=== PATIENT | female | born 1990 | race Caucasian/White ===

== ENCOUNTER 2018-04-04 08:37 | Inpatient (IN) ==
[2018-04-04] MEDS ORDERED: Metoclopramide 10 MG/2 ML VIAL IVP PRN (08:42)
[2018-04-04] MEDS ORDERED: Famotidine 20 MG/2 ML VIAL IVP PRN (08:42)
[2018-04-04] MEDS ORDERED: miSOPROStol 25 MCG TABLET PO PRN (08:42)
[2018-04-04] MEDS ORDERED: Ondansetron 4 MG/2 ML VIAL IVP PRN ×2 (08:42→12:20)
[2018-04-04] MEDS ORDERED: Naloxone 0.4 MG/ML INJ IVP PRN ×2 (08:42→12:20)
[2018-04-04] MEDS ORDERED: Oxytocin 20 units/ LR 1000 mL 20 UNIT/1,000 ML BAG IVC SCH ×2 (08:45→18:47)
[2018-04-04 09:28] LABS: Basophils % 0.2 %; Eosinophils # 0.1 K/mcL (0.0-0.6); Eosinophils % 0.6 %; Hemoglobin 12.1 g/dL (11.5-15.4); Immature Granulocytes % 0.2 % (0-4); Lymphocytes # 1.8 K/mcL (0.6-4.6); Lymphocytes % 22.8 %; Mean Corpuscular HGB Conc 32.7 g/dL (31.6-35.5); Mean Corpuscular Hemoglobin 26.8 pg (28.0-33.3); Mean Platelet Volume 9.3 fL (9.4-12.4); Monocytes # 0.6 K/mcL (0.0-1.3); Monocytes % 7.1 %; Neutrophils # 5.5 K/mcL (1.6-8.9); Platelet Count 267 K/mcL (140-400); Red Blood Count 4.51 M/mcL (3.82-4.97); Red Cell Distribution Width 13.9 % (11.5-14.5); Segmented Neutrophils % 69.1 %
[2018-04-04 09:47] LABS: Amphetamine Screen,Urine Negative ng/mL (Cutoff=1000); Barbiturate Screen,Urine Negative ng/mL (Cutoff=200); Benzodiazepines Screen,Urine Negative ng/mL (Cutoff=200); Cannabinoid Screen,Urine Negative ng/mL (Cutoff = 50); Cocaine Screen,Urine Negative ng/mL (Cutoff= 300); Opiate Screen,Urine Negative ng/mL (Cutoff=300); Phencyclidine Screen,Urine Negative ng/mL (Cutoff=25)
--- NOTE | 2018-04-04 10:04 | OB/GYN History & Physical ---
Date of Encounter: 04/04/18 Time of Encounter: 10:01 Assessment and Plan (1) 39 weeks gestation of Current visit: Yes Status: Acute admitted for IOL cytotec 50mcg PO daily (2) Rh negative status during in third trimester Current visit: Yes Status: Acute Rhogam evaluation following delivery History of Present Illness Chief complaint: Scheduled IOL at 39w5d HPI: Ms. Piper is a 27 year old female @ 39w5d presents to labor and delivery for scheduled IOL. Maldonado score of 10. Patient reports +FM, denies contractions , LOF or VB. Patient denies complications with current . Blood type: A- Rubella: Immune Hep B: Non-reactive GBS: Negative Past Med Surg Social Fam HX - Past Medical History Source: patient Medical history: no medical history Psychiatric history: no psych history - Past Surgical History Surgical History: other Additional surgical history: Ankle surgery - Social History Smoking Status: Never smoker Smokeless Tobacco Status: No Alcohol use: none Drug use: none - Family History Mother Living Status: Still Living Hx Family Cardiac Disorders: No Hx Family Respiratory Disorders: No Hx Family Cancer: No Hx Family GI Disorders: No Hx Family Endocrine Disorder: No Hx Family Musculoskeletal Disorders: No Hx Family Neuromuscular Disorders: No Hx Family Neurologic Disorders: No Hx Family HEENT Disorders: No Hx Family Autoimmune Disorders: No Hx Family Reproductive Disorders: No Hx Family Psychosocial Disorders: No Hx Family Medical Disorders: No Obstetrical History - Pregnancies : 2 Para: 1 Term: 1 : 0 Ab's: 0 Livin Medications and Allergies Pnv95/Iron Fum/Folic Acid [ Caplet] 1 tab PO DAILY 02/25/16 [History] Cyclobenzaprine [Flexeril] 5 mg PO BID PRN #10 tablet 02/27/16 [Rx] Docusate [Colace] 100 mg PO BID #60 capsule 02/27/16 [Rx] Ibuprofen [Motrin] 600 mg PO QID #60 tablet 02/27/16 [Rx] 3 Allergy/AdvReac Type Severity Reaction Status Date / Time No Known Allergies Allergy Unverified 10/12/15 10:46 Review of System OB - Constitutional Constitutional ROS IM: no chills, no fever(s), no headache(s) - Cardiovascular Cardiovascular: no chest pain, no edema, no lightheadedness, no palpitations - Respiratory Respiratory: no cough - Gastrointestinal Gastrointestinal: no abdominal pain, no constipation, no diarrhea, no heartburn , no nausea, no vomiting - Genitourinary Genitourinary: no abnormal vaginal bleeding, no dysuria, no flank pain, no urinary frequency, no urinary urgency, no vaginal discharge, no vaginal odor, no vaginal pruritis Exam - Constitutional Constitutional: well developed, well nourished, no acute distress, average body habitus - HEENT HEENT: Normocephaly, Mucus Membranes Moist - Neck Neck exam: full ROM, supple - Lungs Respiratory exam: CTAB - Cardiovascular Cardiovascular exam: RRR, +S1 - Abdomen Abdomen: Present: bowel sounds normal, gravid, non tender - Extremities Extremities exam: full ROM, normal inspection Deep Tendon Reflex Grade: 2+ Normal - Uterus Uterus exam: Present: normal size, normal contour - Anus/Rectum Anus/Rectum: Present: normal perianal skin - Comments Comments: FHR 130 bpm moderate amount of variability +15x15 accels no decels noted. Contractions are irregular. Cat. 1 tracing Results Result Diagrams: 04/04/18 08:47 Abnormal lab results MCV 82.0 fL (83.0-100.0) L 04/04/18 08:47 MCH 26.8 pg (28.0-33.3) L 04/04/18 08:47 MPV 9.3 fL (9.4-12.4) L 04/04/18 08:47 All other labs normal. - VTE Reasons for not Prescribing Prophylaxis: Treatment not Indicated - Low risk for VTE
[2018-04-04] MEDS ORDERED: *HR* FentaNYL (PF) 100 MCG/2 ML VIAL EP ONE (12:20)
[2018-04-04] MEDS ORDERED: EPHEDrine 50 MG/ML VIAL IVP PRN (12:20)
[2018-04-04] MEDS ORDERED: Bupivacaine-MPF 0.25% 10 ML VIAL EP ONE (12:20)
--- NOTE | 2018-04-04 12:24 | Anesthesia Procedures ---
Date of Encounter: 04/04/18 Time of Encounter: 14:00 Procedures: Anesthesia - Epidural/Spinal Patient ID/Chart reviewed: Yes Patient examined: Yes OB Eval: Gestational age: 39.5 OB Eval: : 2 OB Eval: Hx Para: 1 OB Eval: Dilated at (cm): 4 OB Eval: Contractions: Non-stressed pattern Consent Obtained: Yes Supplemental Oxygen: None/Room Air Site Prep: Aseptic Technique, Sterile prep and drape, Povidone-Iodine 1% Patient position: upright Local Anesthetic: Lidocaine 1% Amount of Local Anesthetic used: 3 Touhy Needle Gauge: 18 Touhy Needle Depth (cm): 5 Catheter Depth at Skin (cm): 15 Test Dose (1.5% Lido + Epi): Volume given (mls): 3 Test Dose Result: Negative Loading Dose: 0.25% Marcaine (mls): 10 Loading Dose: Fentanyl (mcg): 100 Loading Dose Administered: Thru Catheter Infusion Med: 0.125% Bupivacaine w/ 2 mcg/ml Fentanyl Infusion Rate (mls/hr): [address]: Tegaderm, Tape Interspace Used: L3-L4 Loss of Resistance (TAMMY): Yes Blood: No CSF: No Paresthesia: No Procedure: ION placed 1st pass without any immediate noted complications. VSS and FHT stable Vitals + FHT's: 1400 BP 124/77 P 95 R 20 1418 BP 107/70 P 82 R 16 FHT 120s
--- NOTE | 2018-04-04 12:27 | Anesthesia Evaluation PreOp ---
Date of Encounter: 04/04/18 Time of Encounter: 12:21 - Past History Planned Operation: ION Cardiac History: Denies any Significant Hx Pulmonary History: Denies Any Significant HX LITIGATION COUNSEL History: Denies Any Significant HX Other Medical History: GERD (controlled with TUMS) Anesthesia History: No Prior Anesthetic Complications, Past Anesthesia (right ankle surgery) : Yes Alcohol Use: none Drug use: none Medications and Allergies Pnv95/Iron Fum/Folic Acid [ Caplet] 1 tab PO DAILY 02/25/16 [History] Cyclobenzaprine [Flexeril] 5 mg PO BID PRN #10 tablet 02/27/16 [Rx] Docusate [Colace] 100 mg PO BID #60 capsule 02/27/16 [Rx] Ibuprofen [Motrin] 600 mg PO QID #60 tablet 02/27/16 [Rx] 3 Allergy/AdvReac Type Severity Reaction Status Date / Time No Known Allergies Allergy Unverified 10/12/15 10:46 - Meds/Allergy Pre-op Review Medications Reviewed: Yes Allergies Reviewed: Yes Beta Blockers on Current Med List: No Anesthesia Results - Labs 04/04/18 08:47 Anesthesia Exam BP 117/71 P 90 R 16 T 97.8 Height: 5'6" Weight: 98.4kg NPO (# of Hours): 6hrs solids Pain Scale: 3 Pain Scale Used: Numeric (1 - 10) - HEENT Pupil (Motor): Pupils equal Mallampati: II Teeth: Normal Oral Opening: Greater than 3 - LITIGATION COUNSEL LOC: Oriented LITIGATION COUNSEL Motor: Normal RUE, Normal LUE, Normal RLE, Normal LLE, Normal Face LITIGATION COUNSEL Sensory: Normal: RUE, LUE, RLE, LLE, Face - Cardiac Rhythm: Regular Murmur: None JVD: No Carotid Bruit: No - Pulmonary Breath Sounds: bilateral Clear Respiratory Effort: Symmetrical Anesthesia Assess/Plan ASA Score: 2 Modified [place] Scale for Level of Consciousness: Cooperative, oriented, and tranquil Anesthetic Plan: Regional Autologous Blood: No Monitoring Plan: Standard Monitors Recovery Plan: Other
[2018-04-04] MEDS ORDERED: Epidural Premix (fent/bupiv) 110 ML EP SCH (12:30)
--- NOTE | 2018-04-04 13:07 | OB Labor Progress Note ---
Date of Encounter: 04/04/18 Time of Encounter: 13:05 Labor Progress Note - Subjective Subjective: Patient resting in bed at this time. Patient denies any questions or concerns. - Cervix Cervix: 4/80/-1 - Heart Tones Heart Tones: 125 bpm moderate amount of variability +15x15 accels no decels noted. Cat. 1 tracing. - [place]: 2-2.5 - Interventions Interventions: SVE, AROM moderate amount of clear fluid noted. - Plan Plan: Continue labor management epidural for pain management when patient desires anticipate
[2018-04-04] MEDS: Ringers Solution, Lactated 1,000 ML IVC SCH ×2 (13:13→14:46)
[2018-04-04] MEDS ORDERED: *HR* FentaNYL (PF) 100 MCG/2 ML VIAL ONE (13:54)
[2018-04-04] MEDS ORDERED: *HR* ROPIVACAINE 1% PF 100 MG/10 ML VIAL ONE (13:54)
[2018-04-04] MEDS ORDERED: Lidocaine -MPF 1% 5 ML AMPUL ONE (13:54)
--- NOTE | 2018-04-04 16:06 | OB/GYN Procedure Note ---
Delivery - Delivery Date: 04/04/18 Provider: Marlyn Irene Intrapartum events: none Delivery induction: AROM, misoprostol Delivery monitor: external FHT, external uterine Anesthesia: epidural Quantitated Blood Loss: 50 - (s) A Delivery Date: 04/04/18 Delivery Time: 15:40 Presentation: vertex Position: MOODY Route of delivery: Gender: Male Viability: Viable Pounds: 7 Ounces: 10 at 1 minute: 8 at 5 mins: 9 Shoulder Dystocia: not encountered Specimens collected: cord blood Placenta: spontaneous, uterine exploration Cord: nuchal cord (x1), 3 umbilical vessels, nuchal reduced - Repair Episiotomy: none Laceration Description: None - Complications Delivery complications: none - Disposition Mom disposition: stable in LDR [place] disposition: stable in LDR - Comments Comments: Called to LDR patient feeling pressure. SVE complete and +2 station. Patient placed in stirrups and prepped for vaginal delivery. Under maternal effort patient spontaneously delivered a viable male over and intact perineum. A nuchal cord x1 was reduced, no shoulder dystocia or meconium was encountered. Infant was placed on maternal abdomen. Cord was clamped and cut after pulsation ceased. Placenta delivered spontaneously and intact. Pericare provided. All counts correct. Both mother and infant stable in LDR for 2 hour recovery.
[2018-04-04] MEDS ORDERED: Rho Immune Globulin 1,500 UNIT SYRINGE IM PRN (18:47)
[2018-04-04] MEDS ORDERED: Measles/Mumps/Rubella Vacc 0.5 ML VIAL SQ PRN (18:47)
[2018-04-04] MEDS ORDERED: Acetaminophen 325 MG TABLET PO PRN (18:47)
[2018-04-04] MEDS ORDERED: Lanolin 7 G OINT...G. TP PRN (18:47)
[2018-04-04] MEDS ORDERED: Benzocaine/Menthol 56 GM AEROSOL SPRAY TP PRN (18:47)
[2018-04-04] MEDS: Ibuprofen 600 MG TABLET PO PRN (20:04)
[2018-04-04] MEDS ORDERED: Ondansetron ODT 4 MG TAB.RAPDIS SL PRN (20:42)
[2018-04-04] MEDS ORDERED: *HR* Ropivacaine/PF 0.2% 20 ML VIAL ONE (21:12)
[2018-04-05] MEDS: Ibuprofen 600 MG TABLET PO PRN ×2 (05:30→11:04)
[2018-04-05 07:33] VITALS: BP 119/64
[2018-04-05] MEDS ORDERED: Prenatal Vit/FA 1 EACH TABLET PO SCH (09:00)
--- NOTE | 2018-04-05 09:24 | Discharge Summary ---
Date of Encounter: 04/05/18 Time of Encounter: 09:20 - Discharge Diagnosis (1) Mother currently breast-feeding Priority: Secondary Status: Acute (2) At risk for ineffective Priority: Secondary Status: Acute (3) Vaginal delivery Priority: Primary Status: Acute Comments: Day 1 S/P vaginal delivery Pain well controlled Lochia is light and without clots Tolerating regular diet Urinating and passing flatus without difficulty Breast feeding is going well Discharge today - Discharge Medications Prescriptions: Ibuprofen [Motrin] 600 mg PO Q6HR PRN #30 tablet PRN Reason: Cramping Breast Pump [BREAST PUMP] 1 each .ROUTE AD #1 each Docusate [Colace] 100 mg PO BID #30 capsule Home Medications: Cyclobenzaprine [Flexeril] 5 mg PO BID PRN #10 tablet 02/27/16 [Rx] Acetaminophen [Tylenol] 650 mg PO Q6HR PRN tablet 04/05/18 [Rx] Benzocaine/Menthol Cobb [Dermoplast Cobb] 1 appl TP QID PRN aerosol 04/05/18 [Rx] Breast Pump [BREAST PUMP] 1 each .ROUTE AD #1 each 04/05/18 [Rx] Docusate [Colace] 100 mg PO BID #30 capsule 04/05/18 [Rx] Ibuprofen [Motrin] 600 mg PO Q6HR PRN #30 tablet 04/05/18 [Rx] Lanolin [Lansinoh] 1 appl TP TID PRN oint...g. 04/05/18 [Rx] Vit/FA 1 each PO DAILY tablet 04/05/18 [Rx] Allergies/Adverse Reactions: 3 Allergy/AdvReac Type Severity Reaction Status Date / Time No Known Allergies Allergy Unverified 10/12/15 10:46 Data Procedures and tests throughout hospitalization: Laboratory Tests 04/04/18 04/04/18 04/04/18 08:47 09:13 15:55 WBC 8.0 RBC 4.51 Hgb 12.1 Hct 37.0 MCV 82.0 L MCH 26.8 L MCHC 32.7 RDW 13.9 Plt Count 267 MPV 9.3 L Immature Gran % 0.2 Seg Neutrophils % 69.1 Lymphocytes % 22.8 Monocytes % 7.1 Eosinophils % 0.6 Basophils % 0.2 Neutrophils # 5.5 Lymphocytes # 1.8 Monocytes # 0.6 Eosinophils # 0.1 Basophils # 0.0 Urine Opiates Screen Negative Ur Barbiturates Screen Negative Ur Phencyclidine Scrn Negative Ur Amphetamines Screen Negative U Benzodiazepines Scrn Negative Urine Cocaine Screen Negative U Marijuana (THC) Screen Negative Ur Drug Screen Interp See Below Baby's Blood Type A RH POSITIVE Mother's Blood Type A RH NEGATIVE Rhogam Indicated YES Labs on day of discharge: Labs from last 24 hours 04/04/18 04/04/18 04/04/18 15:55 09:13 08:47 WBC 8.0 RBC 4.51 Hgb 12.1 Hct 37.0 MCV 82.0 L MCH 26.8 L MCHC 32.7 RDW 13.9 Plt Count 267 MPV 9.3 L Immature Gran % 0.2 Seg Neutrophils % 69.1 Lymphocytes % 22.8 Monocytes % 7.1 Eosinophils % 0.6 Basophils % 0.2 Neutrophils # 5.5 Lymphocytes # 1.8 Monocytes # 0.6 Eosinophils # 0.1 Basophils # 0.0 Urine Opiates Screen Negative Ur Barbiturates Screen Negative Ur Phencyclidine Scrn Negative Ur Amphetamines Screen Negative U Benzodiazepines Scrn Negative Urine Cocaine Screen Negative U Marijuana (THC) Screen Negative Ur Drug Screen Interp See Below Baby's Blood Type A RH POSITIVE Mother's Blood Type A RH NEGATIVE Rhogam Indicated YES Date of admission: 04/04/18 08:37 Consults: 04/04/18 18:47 Consult to [employer]inder[employer] Machine Operator [CONS] Routine Comment: Vaginal delivery, consult needed Discharging clinician: Diana Javier Anticipated date of discharge: 04/05/18 - Patient Status Disposition: Home, Self-Care Condition: Good Functional capacity at discharge: independent ambulation Overall status at discharge: patient is progressing back to baseline - Discharge Instructions Follow Up With: Marlyn Irene CNM [Non-Partnered Physician] - - Diet and Activity Activity: increase activity as tolerated Diet: regular diet Hospital Course Reason for admission: IUP at term Delivery: Episiotomy: none Laceration: none Other procedures: none complications: none Discharge diagnosis: IUP at term delivered [place] baby: male Time Attestation: Total time spent providing and/or coordinating discharge services: Time Spent: Less than 30 minutes Exam - Constitutional Vitals: Temp Pulse Resp BP Pulse Ox 98.2 F 62 12 119/64 99 04/05/18 07:31 04/05/18 07:31 04/05/18 07:31 04/05/18 07:31 04/05/18 07:31 General appearance IM: cooperative, A&O X 3, pleasant - Respiratory Respiratory exam: Present: CTAB - Cardiovascular Cardiovascular exam IM: Present: RRR, +S1, +S2 - GI/Abdominal GI/Abdominal exam IM: normal bowel sounds, soft - Rectal Rectal exam: deferred - Uterine Tone: Firm Uterus Position: At Umbilicus, 1 Finger Below Umbilicus - Extremities Exam Extremities exam IM: Present: normal capillary refill, normal inspection, radial pulses palpable and symmetrical - Neurological Exam Neurological exam: alert, oriented X3, reflexes normal
== END 2018-04-05 16:56 | disposition home or self-care (01) | DRG 775 ==
LOC: 1NENULAB 08:37 → 1NENUOBS 18:47
PROVIDERS: ADMIT Advanced Practice Midwife; ATTEND Advanced Practice Midwife